=== PATIENT | female | born 1980 | race African-American/Black ===

== ENCOUNTER 2017-03-16 22:24 | Emergency (ER) | payer MEDICAID ==
[~2017-03-16] VITALS: Ht 160 cm; Wt 50.0 kg
[~2017-03-16 22:24] MED LIST: Z.0.NO CURRENT MEDS
[2017-03-16 22:33] VITALS: BP 109/77; PULSE 79; RESP 18; TEMP 98.2; O2SAT 100
--- NOTE | 2017-03-17 00:28 | PD ---
HPI Chief Complaint: Laceration/Skin Injury Time Seen by Provider: 23:19 Travel History International Travel<30 days: No Contact w/Intl Traveler<30days: No Traveled to known affect area: No History of Present Illness HPI Patient is a 37-year-old female who endorses drinking tonight. She states that she was playing around with a glass and slip with a knife and slipped and accidentally cut her left wrist. She stated was completely on accident and she was not intending to hurt herself. She is coming by her mother who is also signed in to be a patient who concurs the patient was not trying to hurt herself. Mother did drive her here. She denies any other injuries. Symptoms happened just prior to arrival. [facility] Past Medical History Blood Disorders: No Cancer: No Cardiovascular Problems: No Chemotherapy: No Diabetes: No Diminished Hearing: No Endocrine: No Glaucoma: No Genitourinary: No Hepatitis: No Hiatal Hernia: No Hypertension: No Immune Disorder: No Medical other: Yes (HX ANEMIA) Musculoskeletal: No Neurologic: No Psychiatric: No Reproductive: No Respiratory: No Radiation Therapy: No Thyroid Disease: No Tetanus Vaccination: > 5 Years Influenza Vaccination: No ?: Not Past Surgical History Surgical History: No Previous Surgery Arteriovenous Shunt: No Insulin Pump: No Joint Replacement: No Pacemaker: No Social History Alcohol Use: No Tobacco Use: No (DENIES) Substance Use: No Allergies-Medications (Allergen,Severity, Reaction): Coded Allergies: No Known Allergies (Verified , 03/16/17) Reported Meds & Prescriptions Reported Meds & Active Scripts Active Reported No Current Meds (Miscellaneous Medication) Misc Review of Systems Except as stated in HPI: all other systems reviewed are Neg Physical Exam Narrative GENERAL: Well-nourished, well-developed patient. SKIN: There is a less than 1 cm laceration to the volar aspect of the left forearm rocks only for cm proximal to the carpal tunnel sheath. This is a fairly superficial laceration, there is fat exposed but no muscle belly. No foreign bodies seen. HEAD: Normocephalic. EYES: No scleral icterus. No injection or drainage. NECK: Supple, trachea midline. No JVD or lymphadenopathy. CARDIOVASCULAR: Regular rate and rhythm without murmurs, gallops, or rubs. RESPIRATORY: Breath sounds equal bilaterally. No accessory muscle use. GASTROINTESTINAL: Abdomen soft, non-tender, nondistended. MUSCULOSKELETAL: No cyanosis, or edema. Pulses motor and sensory intact distally bilateral upper extremities, patient has all tendon motions intact of the left hand and wrist including flexors at the PIP and DIP and MCP joints of the fingers. Full opposition and abduction and abduction flexion and extension of the thumb was observed. Cap refill was brisk in all 5 digits. BACK: Nontender without obvious deformity. No CVA tenderness. Data Data Last Documented VS Vital Signs Date Time Temp Pulse Resp B/P Pulse Ox O2 Delivery O2 Flow Rate FiO2 03/16/17 22:33 98.2 79 18 109/77 100 Orders Tetanus/Diphtheria Tox Adult (Tetanus/Di (03/17/17 00:45) MDM Medical Decision Making Medical Screen Exam Complete: Yes Emergency Medical Condition: Yes Differential Diagnosis Laceration, tendon injury unlikely, vascular injury unlikely. Narrative Course Patient was roomed emergency department, she has a barely uncoupled like laceration. She is clinically sober and her mother is driving her home. There is no indication further workup at this time. Her wound was fully explored and cleaned and Dermabond was applied. She is stable for discharge at this time. Discussed symptomatically management her wound and returned ED criteria. Procedures Procedure Narrative LACERATION LOCATION: Left volar forearm LENGTH: 1 cm NUMBER OF STITCHES/DEBRA: Glue REPAIR: The area of the laceration was prepped with Betadine and sterilely draped. The wound was copiously irrigated and explored without evidence of foreign body, tendon injury or neurovascular injury. The wound was closed using Dermabond. This was a single layer repair. A sterile dressing was applied. The patient was advised to keep the dressing clean and dry. Patient tolerated the procedure well. Diagnosis Primary Impression: Laceration of forearm Qualified Code: S51.812A - Laceration of forearm, left, initial encounter Disposition: DISCHARGE HOME Condition: Stable Joe Chaparro MD March 17, 2017 00:28
[2017-03-17] MEDS ORDERED: TETANUS/DIPHTHERIA TOXOID ADULT 0.5 ML VIAL IM ONE (00:45)
== END 2017-03-17 00:53 | disposition home or self-care (01) ==
LOC: PHED 22:24 → PHEFT 03-17 00:53
DX: S51.812A Laceration without foreign body of left forearm, initial encounter (principal); D64.9 Anemia, unspecified; Z23 Encounter for immunization; W26.0XXA Contact with knife, initial encounter
CPT/HCPCS: 12001; 90471; 90714

== ENCOUNTER 2017-11-25 09:45 | Emergency (ER) | payer MEDICAID ==
[~2017-11-25] VITALS: Ht 157.5 cm; Wt 51.0 kg
[2017-11-25 09:48] VITALS: BP 121/64; PULSE 80; RESP 16; TEMP 98; O2SAT 98
[2017-11-25] MEDS ORDERED: ONDANSETRON ODT 4 MG TAB PO ONE (10:30)
--- NOTE | 2017-11-25 10:31 | PD ---
HPI Chief Complaint: Cold / Flu Symptoms Time Seen by Provider: 10:03 Travel History International Travel<30 days: No Contact w/Intl Traveler<30days: No Traveled to known affect area: No History of Present Illness HPI 37-year-old female presents to the ED for evaluation of 4 day history of body aches, chills, headaches, sinus congestion, clear rhinorrhea, nonproductive cough, posttussive emesis, nausea. Onset gradual. Patient denies history of seasonal allergies. She did not receive this years flu vaccine. She states that she's been treated with OTC medications and had some improvement of her symptoms. However she states that the nausea has persisted. He states that she has only had one bowel movement in the last 3 days. She thinks that this may be due to low by mouth intake secondary to nausea. She denies dysuria, hematuria, urinary urgency or increased frequency. She denies risk of . Last menstrual period approximately 2 weeks ago. She endorses unprotected sex with a single male partner. PFSH Past Medical History Blood Disorders: No Cancer: No Cardiovascular Problems: No Chemotherapy: No Diabetes: No Diminished Hearing: No Endocrine: No Glaucoma: No Genitourinary: No Hepatitis: No Hiatal Hernia: No Hypertension: No Immune Disorder: No Medical other: Yes (HX ANEMIA) Musculoskeletal: No Neurologic: No Psychiatric: No Reproductive: No Respiratory: No Radiation Therapy: No Thyroid Disease: No Influenza Vaccination: No ?: Not LMP: 2 weeks ago Past Surgical History Surgical History: No Previous Surgery Arteriovenous Shunt: No Insulin Pump: No Joint Replacement: No Pacemaker: No Social History Alcohol Use: No Tobacco Use: No (DENIES) Substance Use: No Allergies-Medications (Allergen,Severity, Reaction): Coded Allergies: No Known Allergies (Verified Adverse Reaction, Unknown, 11/25/17) Reported Meds & Prescriptions Reported Meds & Active Scripts Active Tessalon Perles (Benzonatate) 100 Mg Cap 200 Mg PO TID PRN Zofran Odt (Ondansetron Odt) 4 Mg Tab 4 Mg SL Q8HR PRN Review of Systems Except as stated in HPI: all other systems reviewed are Neg Physical Exam Narrative GENERAL: Well-nourished, well-developed female in no acute distress. SKIN: Warm and dry. HEAD: Normocephalic. Atraumatic. EYES: No scleral icterus. No injection or drainage. PERRLA. EOMI. ENT: Pearly mosher tympanic membranes bilaterally. Nasal mucosa is moist, boggy. Oropharynx mild posterior erythema, no edema or exudate. NECK: Supple, trachea midline. No JVD or lymphadenopathy. CARDIOVASCULAR: Regular rate and rhythm without murmurs, gallops, or rubs. N RESPIRATORY: Breath sounds clear and equal bilaterally. No accessory muscle use. GASTROINTESTINAL: Abdomen soft, nondistended. + Bowel sounds. Mild epigastric tenderness to palpation. No suprapubic tenderness. MUSCULOSKELETAL: No cyanosis, or edema. BACK: Nontender without obvious deformity. No CVA tenderness. Data Data Last Documented VS Vital Signs Date Time Temp Pulse Resp B/P (MAP) Pulse Ox O2 Delivery O2 Flow Rate FiO2 11/25/17 09:57 98 Room Air 11/25/17 09:48 98.0 80 16 121/64 (83) Orders Orders Ondansetron Odt (Zofran Odt) (11/25/17 10:30) Ed Urine Pregnancytest Poc (11/25/17 10:27) Oral Rehydration (11/25/17 10:27) Ed Discharge Order (11/25/17 11:25) [facility] Medical Decision Making Medical Screen Exam Complete: Yes Emergency Medical Condition: Yes Differential Diagnosis Viral syndrome versus influenza versus dehydration versus versus other Narrative Course 37-year-old female presents to the ED for evaluation of 4 day history of body aches, chills, headaches, sinus congestion, clear rhinorrhea, nonproductive cough, posttussive emesis, nausea. Onset gradual. She did not receive this years flu vaccine. States that the nausea has persisted even though her symptoms have somewhat improved. She denies risk of . Last menstrual period approximately 2 weeks ago. She endorses unprotected sex with a single male partner. Vitals reviewed. Physical exam reveals a nontoxic-appearing female in no acute distress. ENT exam is unremarkable. Chest CTAB. Abdomen soft and nontender. Bedside urine test negative. The patient wasn't a stroke 4 mg Zofran ODT and was able to tolerate Gatorade in the emergency room. She is beyond the window to treat with the flu, but I suspect this is influenza. She is provided a few doses of Zofran and Tessalon Perles. She is instructed to continue to treat symptomatically, stay hydrated, follow with the primary care provider. She is stable and discharged home. Diagnosis Primary Impression: Viral syndrome Additional Impression: Nausea Referrals: Primary Care Physician Patient Instructions: General Instructions, Viral Syndrome (ED) Additional Instructions: Rest, hydrate. Push fluids such as sports drinks, Pedialyte, popsicles, clear broth. Takes Zofran as needed for continued nausea. Tessalon as prescribed to reduce cough. Continue with symptomatic treatment with OTC medications. I recommend medication containing a decongestant such as Mucinex D. Alternatively you could take a antihistamine containing a decongestant such as Emily-D.. Alternating Motrin and Tylenol every 4-6 hours as needed for continued fever. Increase handwashing frequently to avoid the spread of the virus to other family members and the community. Disinfect commonly touched surfaces such as light switches, microwaves, remote controls. Replace toothbrush at the end of this illness. Follow-up with the primary care provider this week. Return to the ED for any urgent or emergent medical condition. Med/Other Pt SpecificInfo: Prescription(s) given Scripts Benzonatate (Tessalon Perles) 100 Mg Cap 200 MG PO TID Y for COUGH, #21 CAP 0 Refills Prov: Nelson Floyd MD 11/25/17 Ondansetron Odt (Zofran Odt) 4 Mg Tab 4 MG SL Q8HR Y for Nausea/Vomiting, #6 TAB 0 Refills Prov: Nelson Floyd MD 11/25/17 Disposition: 01 DISCHARGE HOME Condition: Stable Anel Duffy Nov 25, 2017 10:31
[2017-11-25] MEDS ORDERED: ZOFR4TAB3 SL (11:07)
[2017-11-25] MEDS ORDERED: BENZ100 PO (11:07)
== END 2017-11-25 11:31 | disposition home or self-care (01) ==
LOC: PHEFT 09:45
DX: B34.9 Viral infection, unspecified (principal); R11.0 Nausea; D64.9 Anemia, unspecified
CPT/HCPCS: 84703; 99284